=== PATIENT | female | born 1960 | race Caucasian/White ===

== ENCOUNTER 2018-05-27 01:52 | Inpatient (IN) | payer OTHER ==
[~2018-05-27] VITALS: Ht 160 cm; Wt 74.8 kg
[~2018-05-27 01:52] MED LIST: NEXIUM40 M1 PO; PREMARIN0.45 M1 PO; PROBIOTIC1 EACH PO
--- NOTE | 2018-05-27 08:15 | Admission Core Measures ---
Acute Coronary Syndrome (CM) ACS Core Measures Acute Coronary Syndrome Diagnosis No Congestive Heart Failure (NEW) CHF Core Measures Congestive Heart Failure Diagnosis No Cerebrovascular Accident CVA Core Measures CVA/TIA Diagnosis No Venous Thromboembolism VTE Core Juan J (View Protocol) VTE Risk Factors Surgery No Mechanical VTE Prophylaxis d/t N/A MechProphylax Ordered No VTE Pharm Prophylaxis d/t NA PharmProphylax ordered Problem List As ranked by this Provider includes Assessment & Plan 1. Unilateral primary osteoarthritis, left hip HOME MEDS Home Med List Esomeprazole (Nexium) 40 MG CAPSULE.DR 1 CAP PO DAILY GERD (Reported) Estrogens, Conjugated (Premarin) 0.45 MG TABLET 1 TAB PO DAILY REPLACEMENT ( Reported) Lactobacillus Acidophilus (Probiotic) 10 BILLION CELL CAPSULE 1 CAP PO TID SUPPLEMENT (Reported)
--- NOTE | 2018-05-27 08:17 | Surg Short-stay <48hrs Dis Sum ---
Visit Information Visit Dates Admission Date: 05/27/18 Discharge Date: 05/27/18 Surgical Short Stay DC Summary Admission Diagnosis: Primary osteoarthritis Final Diagnosis: Same s/p L THR Procedure(s): L THR Summary/Significant Findings: Patient was admitted to the hospital for an elective total joint replacement. Procedure was tolerated well and patient was transferred to a general surgical floor. Diet was advanced and tolerated. Physical therapy performed evaluation and treatment. At time of hospital discharge, vital signs were stable, neurovascular status was intact, and pain was controlled with the use of oral pain medications. Condition at Discharge: Stable Discharge Disposition: home health services Discharge instructions provided to patient/family: Yes Post discharge follow-up plan: [address] Mirza
--- NOTE | 2018-05-27 08:20 | Patient Discharge Instructions ---
Discharge Instructions General Discharge Information You were seen/treated for: Primary osteoarthritis, left hip You had these procedures: Left total hip replacement Watch for these problems: Increasing pain despite the use of pain medication Increasing redness, warmth or swelling Drainage of any type from incision Inability to bear weight on operative leg Persistent nausea and vomiting Fever greater than 101.5 degrees No bath, but you may shower: Yes Other wound care: Please keep wound clean and dry. No ointments or lotions of any type on or near incision. Your dressing will be changed by your nurse on the second day after your surgery. Daily dry dressing changes are recommended each day thereafter. Do not soak your wound- no tub baths/swimming. You may shower 48hr after surgery. Special Instructions: Aspirin: You are taking this medication to help prevent blood clot formation. Please take with food to protect your stomach lining. Please take as directed. Constipation: Pain medication can cause constipation. It is recommended that you take Colace and Miralax each day. Discontinue this medication if you develop loose stool or diarrhea. If you wish to continue this medication, it is available over the counter. If you are unable to move your bowels or unable to pass gas and are developing bloating, nausea, or vomiting as a result, please contact your doctor. Diet Continue normal diet: Yes Activity Full Activity/No Limits: No Activity Self Limited: Yes Activity Limited to: Weight bear as tolerated Other activity limits: Use rolling walker as needed Acute Coronary Syndrome Inclusion Criteria At DC or during hospital stay patient has or had the following: ACS DIAGNOSIS No Discharge Core Measures Meds if any: Prescribed or Continued at Discharge Meds if any: NOT Prescribed or Continued at Discharge Congestive Heart Failure Inclusion Criteria At DC or during hospital stay patient has or had the following: CHF DIAGNOSIS No Discharge Core Measures Meds if any: Prescribed or Continued at Discharge Meds if any: NOT Prescribed or Continued at Discharge Cerebrovascular accident Inclusion Criteria At DC or during hospital stay patient has or had the following: CVA/TIA Diagnosis No Discharge Core Measures Meds if any: Prescribed or Continued at Discharge Meds if any: NOT Prescribed or Continued at Discharge Venous thromboembolism Inclusion Criteria VTE Diagnosis No VTE Type NONE VTE Confirmed by (Test) NONE Discharge Core Measures - Per Current guidelines, there needs to be overlap - treatment for the first 5 days of Warfarin therapy. - If discharged on Warfarin prior to 5 days of - overlap therapy, the patient will need to be - assessed for post discharge needs including - *Post discharge parental anticoagulation - *Warfarin and/or parental anticoagulation education - *Follow up date to check INR post discharge At least 5 days overlap therapy as Inpatient No Meds if any: Prescribed or Continued at Discharge Note: Overlap Therapy is Warfarin and Anticoagulant Meds if any: NOT Prescribed or Continued at Discharge
[2018-05-27] MEDS ORDERED: MIRALAX17 G1 PO (09:22)
[2018-05-27] MEDS ORDERED: COLACE100 M1 PO (09:22)
[2018-05-27] MEDS ORDERED: DILAUDID2 M1 PO (09:22)
[2018-05-27] MEDS ORDERED: ASPIRIN325 M2 PO (09:22)
[2018-05-27] MEDS ORDERED: MS CONTIN15 M3 PO (09:22)
--- NOTE | 2018-05-27 10:25 | PN- Orthopedic ---
Subjective Subjective: Patient reports pain well controlled. Denies numbness or tingling. Tolerating ice chips, denies n/v, voiding. Patient reports a hx of thalassemia and gi upset when taking aspirin in the past and states her GI doctor told her to avoid taking it. Offers no complaints. Objective Vital Signs and I&Os Intake & Output 05/27 1600 05/27 0800 05/27 0000 05/26 1600 05/26 0800 05/26 0000 Intake Total Output Total Balance Patient 165 lb Weight Physical Exam: afebrile, vss Gen - in pacu in nad cardiac - S1S2 noted Lungs - CTAB Ext - movess all extremities, compartment soft, motor and sensory intact, dressing c/d/i, ice in place, nontender Current Medications: Current Medications Sig/Amy Start time Last Medication Dose Route Stop Time Status Admin Acetaminophen 0 .STK-MED ONE 05/27 723 DC PO Cefazolin Sodium 2,000 MG ONCE 05/27 0000 NR IV 05/27 2359 Oxycodone HCl 0 .STK-MED ONE 05/27 722 DC PO Assessment/Plan Assessment/Plan 58 F s/p L THR, awaiting PT eval PT eval, WBAT Advance to regular diet Post op abx - ancef x2 Pain regimen prn Asa 325 bid - will d/w gracie Krueger Encourage IS Monitor posop void Anticipate d/c today pending PT clearance Core Measures Venous Thromboembolism VTE Risk Factors Surgery No Mechanical VTE Prophylaxis d/t N/A MechProphylax Ordered No VTE Pharm Prophylaxis d/t NA PharmProphylax ordered
[2018-05-27 10:45] VITALS: BP 118/72
--- NOTE | 2018-05-27 10:46 | RADIOLOGY REPORT ---
EXAMINATION: XR HIP, LEFT CLINICAL INFORMATION: Status post left total hip replacement. COMPARISON: Printing Plate Clerk view from the CT scan of the abdomen dated 07/14/2014. TECHNIQUE: Two views of the left hip. FINDINGS: The patient is status post total left hip arthroplasty with the prosthetic components well seated within the [place] bone. On the lateral view, the tip of the prosthesis is not included. On the frontal view, the tip of the prosthesis appears unremarkable. No hardware failure or [place] bone fracture is seen. Alignment is anatomical. Small amount of subcutaneous emphysema is seen in the soft tissues, consistent with recent postoperative state. IMPRESSION: No evidence of hardware failure or [place] bone fracture status post total left hip arthroplasty.
--- NOTE | 2018-05-27 14:30 | Operative Report ---
Operative/Inv Procedure Report Surgery Date: 05/27/18 Name of Procedure: Left total hip replacement Pre-Operative Diagnosis: Primary left hip DJD Post-Operative Diagnosis: Same Estimated Blood Loss: 250 Surgeon/Medical Massage Therapist: Yuki MESSER,Brien Villa Anesthesia: block Operative/Procedure Note Note: Description of Procedure: The patient was taken to the operating room and positively identified. After induction of spinal anesthesia and administration of appropriate pre-operative antibiotics, the patient was positioned supine on the operating room table and all bony prominences were well padded. After performing a surgical timeout, the left lower extremity was prepped and draped in the usual sterile fashion. A direct anterior approach was made to the left hip. The incision was carried sharply through superficial soft tissues to the level of the fascia. Meticulous hemostasis was maintained with Bovie electocautery. The fascia over the tensor fascia nilay muscle was opened sharply and the interval between the TFL and the sartorius was entered bluntly taking care to stay lateral to the lateral femoral cutaneous nerve. Retractors were placed around the femoral neck and the pericapsular fat was identified. The ascending branches of the lateral femoral circumflex vessels were identified and carefully coagulated. The pericapsular fat and anterior capsule were then resected. A napkin ring osteotomy was performed and the femoral head was removed without difficulty. Attention was then turned to the acetabulum. After appropriate placement of retractors, the acetabulum was exposed. Soft tissue was cleaned from the acetabular margin and notch. Overhanging osteophytes were removed and the teardrop was exposed. The acetabulum was then sequentially reamed to accept a 52 mm Guthrie Tritanium hemispherical solid shell. This was impacted into place in the appropriate position and fitted with a 32 mm Trident X3 zero degree polyethylene insert. Attention was then turned to the femur. After performing the appropriate ligament releases, the proximal femur was exposed. It was then sequentially broached to accept a size 5 Johana Accolade 2 stem. This was trialed for leg length and stability. The trial component was removed and the final component was impacted into place. The trunnion was carefully cleaned and fit with a 32 mm, +0 Biolox delta ceramic femoral head. The hip was reduced and put through a full range of motion and found to be stable. The articular space was then irrigated with sterile saline. The periarticular soft tissues were infilitrated with Marcaine. The fascial layer was closed with interrupted #1 vicryl suture and the skin was re-approximated with interrupted 2 -0 vicryl. The skin was closed with a running 3-0 V-Lock suture. Steri-strips and a sterile dressing were applied. The patient was awakened and taken to the recovery room in satisfactory condition.
== END 2018-05-27 12:50 | disposition home health service (06) | DRG 470 ==
LOC: SDA 01:52 → ENRESERV 09:58 → ENTRNSPT 10:15 → EDTRNSPTSTS 10:37 → EDTRNSPT 10:37 → 2NB 10:45 → CMPTRNSPT 11:05 → 2NB 12:50
PROC: 0SRB04A Replacement of Left Hip Joint with Ceramic on Polyethylene Synthetic Substitute, Uncemented, Open Approach (ICD-10-PCS; principal; 2018-05-27)
DX: M16.12 Unilateral primary osteoarthritis, left hip (principal); K21.9 Gastro-esophageal reflux disease without esophagitis; F17.210 Nicotine dependence, cigarettes, uncomplicated; D56.3 Thalassemia minor; Z88.6 Allergy status to analgesic agent; Z88.8 Allergy status to other drugs, medicaments and biological substances
CPT/HCPCS: 2NBP; 73502-LT; 97116-GO; 97161-GP; J0690; J0735; J2405; J7042